=== PATIENT | female | born 1960 | race Caucasian/White ===

== ENCOUNTER 2021-07-03 19:24 | Emergency (ER) | payer MEDICAID ==
[~2021-07-03] VITALS: Ht 142.2 cm; Wt 54.4 kg
[2021-07-03 19:37] VITALS: BP 174/96
--- NOTE | 2021-07-03 19:40 | NUR ---
TO LOBBY A/W BED AMBULATORY
--- NOTE | 2021-07-03 20:37 | NUR ---
PT AMB TO BED 12
--- NOTE | 2021-07-03 20:40 | NUR ---
PT. IS A 61 Y/O FEMALE THAT CAME INTO ED WITH C/O OF DIARRHEA. PT. STATES SHE HAS BEEN HAVING DIARRHEA FOR 3 MONTHS. PT. ALSO STATES ABDOMINAL PAIN FOR 3 DAYS AND HAS HERNIA UNDER STERNUM. PT. RATES PAIN AT 7/10 ON THE PAIN SCALE AT THIS TIME. DENIES N/V/FEVER. AAOX4; VSS PMH: HTN ALLERGIES: NKA
[2021-07-03 23:01] LABS: BASOPHILS % (AUTO) 0.4 % (0.0-2.0); EOSINOPHILS % (AUTO) 0.3 % (0.0-4.0); HEMOGLOBIN 12.3 g/dL (12.0-16.0); LYMPHOCYTES # (AUTO) 1.1 K/uL (2.5-16.5); LYMPHOCYTES % (AUTO) 17.5 % (20.5-51.1); MEAN CORPUSCULAR HEMOGLOBIN 32 pg (27-31); MEAN CORPUSCULAR HGB CONC 33 g/dL (33-37); MEAN CORPUSCULAR VOLUME 95.6 fL (80-94); MONOCYTES # (AUTO) 0.4 K/uL (0.8-1.0); MONOCYTES % (AUTO) 5.8 % (1.7-9.3); PLATELET COUNT (AUTO) 218 K/uL (140-450); RED BLOOD CELL COUNT(AUTO) 3.87 MIL/uL (4.20-5.40); RED CELL DISTRIBUTION WIDTH 13.2 % (11.6-13.7); WHITE BLOOD COUNT (AUTO) 6.5 K/uL (4.8-10.8)
[2021-07-03 23:20] LABS: ALBUMIN 3.9 g/dL (3.4-5.0); ANION GAP 13.4 (8-16); CARBON DIOXIDE 24.5 mmol/L (21-32); CREATININE 0.9 mg/dL (0.6-1.3); POTASSIUM 3.9 mmol/L (3.5-5.1); TOTAL BILIRUBIN 0.3 mg/dL (0.0-1.0)
[2021-07-04] MEDS ORDERED: LOPE-289 PO (00:37)
[2021-07-04 00:50] VITALS: BP 157/83
--- NOTE | 2021-07-04 00:50 | NUR ---
Patient discharged with v/s stable. Written and verbal after care instructions given and explained. Patient alert, oriented and verbalized understanding of instructions. Ambulatory with steady gait. All questions addressed prior to discharge. ID band removed. Patient advised to follow up with PMD. Rx of imodium given. Patient educated on indication of medication including possible reaction and side effects. Opportunity to ask questions provided and answered.
== END 2021-07-04 00:50 | disposition home or self-care (01) ==
LOC: MED 19:24
DX: R10.30 Lower abdominal pain, unspecified (principal); R19.7 Diarrhea, unspecified; I10 Essential (primary) hypertension
CPT/HCPCS: 36415; 80053; 83690; 85025; 99283

== ENCOUNTER 2022-10-18 17:22 | Emergency (ER) | payer SELFPAY ==
[~2022-10-18] VITALS: Ht 152.4 cm; Wt 55.8 kg
[~2022-10-18 17:22] MED LIST: LOPE-289 PO
[2022-10-18 17:28] VITALS: BP 161/76
[2022-10-18] MEDS ORDERED: AMLO5TAB PO (17:42)
[2022-10-18] MEDS ORDERED: BENA20TA PO (17:43)
[2022-10-18] MEDS ORDERED: KETOROLAC 30 MG/ML VIAL IM ONE (18:15)
[2022-10-18 18:46] LABS: BASOPHILS % (AUTO) 0.5 % (0.0-2.0); EOSINOPHILS % (AUTO) 0.4 % (0.0-4.0); HEMATOCRIT 42.1 % (36-48); HEMOGLOBIN 14.3 g/dL (12.0-16.0); LYMPHOCYTES # (AUTO) 2.3 K/uL (2.5-16.5); LYMPHOCYTES % (AUTO) 48.4 % (20.5-51.1); MEAN CORPUSCULAR HEMOGLOBIN 32 pg (27-31); MEAN CORPUSCULAR HGB CONC 34 g/dL (33-37); MONOCYTES # (AUTO) 0.4 K/uL (0.8-1.0); MONOCYTES % (AUTO) 7.6 % (1.7-9.3); NEUTROPHILS % (AUTO) 43.1 % (42.2-75.2); PLATELET COUNT (AUTO) 251 K/uL (140-450); RED BLOOD CELL COUNT(AUTO) 4.52 MIL/uL (4.20-5.40); RED CELL DISTRIBUTION WIDTH 13.1 % (11.6-13.7); WHITE BLOOD COUNT (AUTO) 4.6 K/uL (4.8-10.8)
[2022-10-18 19:08] LABS: ALBUMIN 4.5 g/dL (3.4-5.0); ANION GAP 12.5 (8-16); ASPARTATE AMINOTRANSFERASE 29 U/L (15-37); CARBON DIOXIDE 27.9 mmol/L (21-32); CHLORIDE 99 mmol/L (98-107); CREATININE 0.9 mg/dL (0.6-1.3); GFR ARICAN-AMERICAN 82 mL/min (>90); GLUCOSE 105 mg/dL (74-106); LIPASE 113 U/L (73-393); POTASSIUM 4.4 mmol/L (3.5-5.1); SODIUM SERUM 135 mmol/L (136-145); TOTAL BILIRUBIN 0.4 mg/dL (0.0-1.0); UREA NITROGEN, BLOOD 14 mg/dL (7-18)
[2022-10-18 19:27] LABS: BILIRUBIN,URINE NEGATIVE (NEGATIVE); BLOOD, URINE TRACE-I (NEGATIVE); COLOR,URINE YELLOW (YELLOW); LEUKOCYTE ESTERASE ,URINE 2+ (NEGATIVE); NITRITE, URINE NEGATIVE (NEGATIVE); UGLUCOSE NEGATIVE (NEGATIVE)
[2022-10-18 19:30] LABS: APPEARANCE,URINE HAZY (CLEAR)
[2022-10-18 19:48] LABS: RBC,URINE 0-5 /HPF (0-5)
[2022-10-18] MEDS ORDERED: FAMOTIDINE 20 MG TAB PO ONE (19:55)
[2022-10-18] MEDS ORDERED: DICYCLOMINE HCL LIQUID 20 MG, ALUMINUM HYD/MAG/SIMETHICONE 30 ML, LIDOCAINE VISCOUS 2% ... PO ONE ×3 (19:55)
[2022-10-18] MEDS ORDERED: SUCR1TAB35 PO (19:56)
[2022-10-18] MEDS ORDERED: BEN10 PO (19:56)
[2022-10-18] MEDS ORDERED: FAMO-92 PO (19:56)
[2022-10-18] MEDS ORDERED: [UNRECOGNIZED DRUG - CODE] PO (19:56)
[2022-10-18] MEDS ORDERED: ALUMINUM HYD/MAG/SIMETHICONE 30 ML UDC ONE (19:58)
[2022-10-18] MEDS ORDERED: DICYCLOMINE HCL LIQUID 10 MG/5 ML UDC ONE (19:58)
[2022-10-18 20:06] VITALS: BP 161/76
--- NOTE | 2022-10-18 20:06 | NUR ---
Patient discharged with v/s stable. Written and verbal after care instructions given and explained. Patient verbalized understanding. Ambulatory with steady gait. All questions addressed prior to discharge. Advised to follow up with PMD.
== END 2022-10-18 20:06 | disposition home or self-care (01) ==
LOC: MED 17:22
DX: K29.70 Gastritis, unspecified, without bleeding (principal); K80.20 Calculus of gallbladder without cholecystitis without obstruction; D25.9 Leiomyoma of uterus, unspecified; I10 Essential (primary) hypertension; Z98.890 Other specified postprocedural states; Z79.899 Other long term (current) drug therapy
CPT/HCPCS: 36415; 74176; 80053; 81001; 83690; 84484; 85025; 87086; 96372; 99285; J1885